=== PATIENT | male | born 1970 | race Hispanic/Latino ===

== ENCOUNTER 2017-05-17 06:53 | Day surgery (SDC) | payer BC ==
[2017-05-16 13:57] VITALS: BMI 32.8
[2017-05-17 07:37] VITALS: RESP 18
[2017-05-17] MEDS ORDERED: Lidocaine 1% Inj (20ml) ONE (08:34)
[2017-05-17] MEDS ORDERED: Bupivacaine 0.5% Inj(30mL) ONE (08:34)
[2017-05-17] MEDS ORDERED: ceFAZolin IV 1 gm in Dextrose 2 GM/100 ML BAG IVPB ONE (08:34)
[2017-05-17] MEDS ORDERED: MethylPREDNISolone Depo 40 mg/ml Inj ONE (08:52)
[2017-05-17] MEDS ORDERED: Bacitracin Ointment 30 GM TUBE ONE (09:03)
[2017-05-17] MEDS ORDERED: Absorbable Gelatin Sponge Size 12-7 ONE (09:03)
[2017-05-17] MEDS ORDERED: Midazolam 2 MG/2 ML VIAL ONE (10:08)
[2017-05-17] MEDS ORDERED: Propofol 10 mg/ml Inj (20 ML) ONE (10:08)
[2017-05-17] MEDS ORDERED: Lidocaine 2% PF (10 ml) Amp ONE (10:09)
[2017-05-17] MEDS ORDERED: Succinylcholine 200 mg/10 ml Inj IV ONE (10:12)
[2017-05-17] MEDS ORDERED: Lactated Ringer's 1,000 ML IV ONE ×2 (11:15→13:00)
[2017-05-17] MEDS ORDERED: Rocuronium 10 mg/ml (5 ml) ONE (11:31)
[2017-05-17] MEDS ORDERED: ePHEDrine 50 mg/ml Inj ONE (12:00)
[2017-05-17] MEDS ORDERED: Lidocaine 1% Inj (20ml) IJ ONE (12:08)
[2017-05-17] MEDS ORDERED: Morphine 1 mg/ml preservative-free Inj(Duramorph) ONE (12:25)
[2017-05-17] MEDS ORDERED: Neostigmine Methylsulfate 3mg/3ml Syringe IV ONE (12:28)
[2017-05-17] MEDS ORDERED: MethylPREDNISolone Depo 40 mg/ml Inj IM ONE (12:30)
[2017-05-17] MEDS ORDERED: Morphine 1 mg/ml preservative-free Inj(Duramorph) IV ONE (12:30)
[2017-05-17] MEDS ORDERED: Bupivacaine 0.5% 50 ML IJ ONE (12:30)
[2017-05-17] MEDS ORDERED: HYDROmorphone 0.5 mg/0.5 ml ISec IVP PRN (13:03)
[2017-05-17] MEDS ORDERED: Oxycodone/Acetaminophen 5/325 mg Tab PO PRN (13:23)
[2017-05-17 14:13] VITALS: BP 133/84; PULSE 66; TEMP 97.6; O2SAT 96
--- NOTE | 2017-05-17 17:27 | PCM.SURG1 ---
Surgeon's Initial Post Op Note - Surgeon's Notes Surgeon: Hamida Retail Analyst: MALCOM Shelley Type of Anesthesia: General Endo Anesthesia Administered By: DR Goncalves/Liane Pre-Operative Diagnosis: primary O/A with chondral eburnatyion L knee. tear medial/lateral meniscus Operative Findings: as above. tricompoartmental syovitis. chondral eburnation - medial femoral condyle/ femoral trochlea Post-Operative Diagnosis: as above Operation Performed: arthroscopic microfracture/chondroplastyu medial femoral condyle, femoral trochlea. arthroscopic partial medial/aklteral menis cectomy. arthroscopic partiasl tricompartmental synovectomy. intraarticular injection Specimen/Specimens Removed: cartilagfe/synvoium/bone Estimated Blood Loss: EBL {In ML}: 10 Blood Products Given: N/A Drains Used: No Drains Date of Surgery/Procedure: 05/17/17 Time of Surgery/Procedure: 12:15 (time in room 11:15)
--- NOTE | 2017-05-18 19:17 | OP ---
PROCEDURE DATE: 05/17/2017 PREOPERATIVE DIAGNOSES: 1. Primary osteoarthritis of the left knee. 2. Internal derangement of the left knee. POSTOPERATIVE DIAGNOSES: 1. Complex tear, medial meniscus. 2. Complex tear, lateral meniscus. 3. Chondral fracture/primary osteoarthritis, femoral trochlea and medial femoral condyle. 4. Tricompartmental synovitis. OPERATIVE FINDINGS: As above. OPERATIVE PROCEDURE: 1. Surgical arthroscopy, left knee; microfracture/chondroplasty, medial femoral condyle and femoral trochlea. 2. Surgical arthroscopy, partial tricompartmental synovectomy. 3. Surgical arthroscopy, partial medial and lateral meniscectomy. 4. Intra-articular injection. 5. Application of knee strapping. SURGEON: Mark Mei MD. INDUSTRIAL HYGIENE ENGINEER: Kathy Morris, certified registered nursing first aid officer. TYPE OF ANESTHESIA: General endotracheal. COMPLICATIONS: None. DRAINS: None. OPERATIVE INDICATIONS: Eloy Sanabria is a gentleman who is employed by [employer], who presents with severe pain and restricted range of motion in the left knee. The patient has bilateral knee problems. The patient has undergone successful surgical arthroscopy of the right knee. The patient now presents with essentially a locked left knee. Pros, cons, risks, and benefits of the surgical approach were discussed. The possibility of mechanical failure, infection, thromboembolic disease, secondary or tertiary surgery is discussed. The patient can no longer withstand the discomfort and wished the surgery be accomplished. The patient is fully aware that a secondary procedure in the future may be required including but not limited to a knee replacement arthroplasty. DESCRIPTION OF PROCEDURE: After having obtained informed consent in the above fashion; after the satisfactory induction of general and regional anesthesia by Dr. Paul Duron; after having identified side, site, and procedure, and a critical pause/time-out, the left lower extremity is prepped and free draped in the usual fashion for lower extremity surgery. The tourniquet have been applied but was not yet inflated. After exsanguinating the limb, using a 6-inch Esmarch bandage, the tourniquet, which had been applied, is inflated to 350 mmHg. The knee baig was employed as well. The joint was insufflated with 10 mL of 1% lidocaine without epinephrine. Using a #11 blade, followed by spreading, followed by introduction of a blunt trocar, the arthroscope was introduced anterolaterally. Careful partial tricompartmental synovitis is noted. Triangulation is accomplished from an anteromedial portal one thumbs-breadth medial to the inferior pole of the patella using #11 blade, followed by spreading, followed by introduction of a blunt trocar. With the arthroscope anterolaterally, with the surgeon exerting a gentle valgus stress, but not so severe as to injure the medial collateral ligament, a careful partial tricompartmental synovectomy is accomplished both to improve visualization and to ablate irritative tissue. Bleeding points controlled with the arthroscopic wand. With the arthroscope anterolaterally, a careful and partial tricompartmental synovectomy is completed. Bleeding points were controlled with the ArthroCare wand. With the surgeon exerting a gentle valgus stress, there was evidence of injury to the medial meniscus, there was evidence of medial meniscal tear. The patient had a prior arthroscopic surgery years before. Using a combination of straight biting basket forceps and the upbiting basket forceps and the right biting basket forceps, a partial medial meniscectomy was accomplished. The inner free edge is debrided using the arthroscopic shaver. There was found to be evidence of complete chondral damage in the medial femoral condyle extending through the articular cartilage to the base of the plate. The anterior cruciate ligament was found to be intact. There was found to be evidence of notch osteophytes and border osteophytes. Careful tricompartmental synovectomy was again accomplished with the arthroscopic shaver. With the arthroscope now anteromedially, the deep posterior horn of the medial meniscus was debrided using a combination of straight biting basket forceps and the arthroscopic shaver. With the arthroscope anterolaterally, with the knee in [id number] position, there was found to be a tear of the inner free edge of the lateral meniscus. Using a combination of the straight biting basket forceps and the side biting basket forceps, a partial lateral meniscectomy was accomplished of the left knee. This having been accomplished, there was found to be evidence of a chondral damage in the area of the femoral trochlea and the posterior aspect of the patella. Again, a chondroplasty was accomplished with the arthroscopic shaver and a microfracture technique was accomplished with the arthroscopic pick. With the arthroscope anterolaterally, with the knee in approximately 60 degrees of flexion, the femoral condyle was noted and there was found to be evidence of bearing of the articular surface and complete chondral damage to the bone. With the arthroscope anterolaterally, using the arthroscopic pick, the chondral plate was violated in a honeycomb-type fashion. Microfracture having been accomplished, the wound was thoroughly irrigated. Attention was then turned to the lateral meniscus again. The inner free edge of the lateral meniscus was smoothed using the arthroscopic shaver and the ArthroCare wand and the [employer] SERFAS wand. Partial tricompartmental synovectomy is completed. Bleeding points were controlled with the arthroscopic wand. Closures in layers with interrupted Vicryl and nylon. Intra-articular injection was offered of Marcaine, Duramorph, and Depo-Medrol. Nicanor Corbin compression dressing was applied. Mark Mei MD
== END 2017-05-17 15:51 | disposition home or self-care (01) ==
LOC: H.OPSURG 06:53
PROVIDERS: ATTEND Orthopaedic Surgery
DX: M23.8X2 Other internal derangements of left knee (principal); M17.12 Unilateral primary osteoarthritis, left knee; M65.862 Other synovitis and tenosynovitis, left lower leg
CPT/HCPCS: 20610; 29877; 88305; 97161; G8978; G8979; G8980; J0171; J0330; J0690; J1030; J2250; J2270; J2704; J2710; J3010; J7030; J7120